=== PATIENT | male | born 1970 | race Caucasian/White ===

== ENCOUNTER 2024-03-21 10:39 | Inpatient (IN) | payer MEDICAID ==
[~2024-03-21] VITALS: Ht 177.8 cm; Wt 117.6 kg
[2024-03-21] VITALS (15 sets, daily range): BP systolic 113–145; BP diastolic 67–102; PULSE 59–76; RESP 10–16; TEMP 97.8–99.5; O2SAT 95–99
[2024-03-21] MEDS ORDERED: nitroGLYCERIN 0.4mg SUBLingual tab SL PRN ×2 (11:15→14:40)
[2024-03-21] MEDS ORDERED: GABA600T13 PO (11:36)
[2024-03-21] MEDS ORDERED: AMLO5TAB16 PO (11:36)
[2024-03-21] MEDS ORDERED: CLOT30CR19 TOP (11:36)
[2024-03-21] MEDS ORDERED: LIDO1ADH58 TOP (11:36)
[2024-03-21] MEDS ORDERED: ATOR40TA72 PO (11:36)
[2024-03-21] MEDS ORDERED: CHOL20002 PO (11:36)
[2024-03-21] MEDS ORDERED: ACET-2778 PO (11:36)
[2024-03-21] MEDS ORDERED: VENL150C58 PO (11:36)
[2024-03-21] MEDS ORDERED: ONDA-103 PO (11:36)
[2024-03-21] MEDS ORDERED: SEMA2.4P SUBCUT (11:36)
[2024-03-21] MEDS ORDERED: BUPR1PAT3 TOP (11:36)
[2024-03-21] MEDS ORDERED: DIPH50CA37 PO (11:36)
[2024-03-21] MEDS ORDERED: VALS1TAB81 PO (11:36)
[2024-03-21 11:44] LABS: BASOPHILS % (AUTO) 0.4 % (0-1); EOSINOPHILS # (AUTO) 0.1 X10'3 (0-0.9); HEMATOCRIT 47.6 % (42.0-52.0); HEMOGLOBIN 15.9 g/dl (14.0-17.9); LYMPHOCYTES # (AUTO) 2.1 X10'3 (1.1-4.8); LYMPHOCYTES % (AUTO) 22.7 % (21-51); MEAN CORPUSCULAR HEMOGLOBIN 30.9 PG (27.0-31.0); MEAN CORPUSCULAR HGB CONC 33.5 g/dL (33.0-36.5); MEAN CORPUSCULAR VOLUME 92.1 FL (78-98); MEAN PLATELET VOLUME 7.1 FL (7.4-10.4); MONOCYTES # (AUTO) 0.6 X10'3 (0-0.9); NEUTROPHILS # (AUTO) 6.4 X10'3 (1.8-7.7); NEUTROPHILS % (AUTO) 69.9 % (42-75); PLATELET COUNT 330 X10'3 (140-440); RED BLOOD COUNT 5.16 X10'6 (4.70-6.10); RED CELL DISTRIBUTION WIDTH 14.9 % (11.5-14.5); WHITE BLOOD COUNT 9.2 X10'3 (4.5-11.0)
[2024-03-21] MEDS: normal saline 1,000 ML IV SCH (11:59)
[2024-03-21] MEDS: diphenhydrAMINE 25mg capsule PO PRN (11:59)
[2024-03-21] MEDS: LORazepam 0.5 MG tablet PO PRN (11:59)
[2024-03-21] MEDS ORDERED: iohexol 350MG/ML 100ml bottle IV ONE (12:33)
[2024-03-21] MEDS ORDERED: fentaNYL/PF 50MCG/1 ML 2ML syringe ONE (12:33)
[2024-03-21] MEDS ORDERED: midazolam 1 mg/ML 2ml injection ONE (12:33)
[2024-03-21] MEDS ORDERED: iohexol 350 MG/ML 50ML vial IV ONE (12:33)
[2024-03-21] MEDS ORDERED: LIDOcaine 1% 30ml preserv. free vial ONE (12:33)
[2024-03-21 12:38] LABS: ALBUMIN 3.7 G/DL (3.4-5.0); ANION GAP 10 (8-16); BLOOD UREA NITROGEN 11 MG/DL (7-18); BUN/CREATININE RATIO 15.5 (10.0-20.0); CALCIUM 9.2 MG/DL (8.5-10.1); CHLORIDE 101 MMOL/L (99-107); CREATININE 0.71 MG/DL (0.60-1.10); GLUCOSE 87 MG/DL (70-104); POTASSIUM 3.8 MMOL/L (3.5-5.1); SODIUM 141 MMOL/L (135-145); TOTAL CARBON DIOXIDE 29.7 MMOL/L (24-32); eCRCL 121 ML/MIN; eGFR > 90 ML/MIN
[2024-03-21 13:06] LABS: APTT 29 SECONDS (22-32); INR 1.1 INR; PROTHROMBIN TIME 11.2 SECONDS (9.0-12.0)
[2024-03-21] MEDS ORDERED: HYDROmorphone 1 mg/ml syringe ONE (13:17)
[2024-03-21] MEDS ORDERED: ondansetron 4mg rapidly disintigrating tab PO PRN (14:25)
[2024-03-21] MEDS ORDERED: OXAZEpam 15mg capsule PO PRN (14:40)
[2024-03-21] MEDS ORDERED: proCHLORperazine 10 MG/2 ml inj IV PRN (14:40)
[2024-03-21] MEDS ORDERED: HYDROcodone/acetaminophen 5mg/325mg tablet PO PRN (14:40)
[2024-03-21] MEDS ORDERED: HYDROcodone/acetaminophen 10/325mg tab PO PRN (14:40)
[2024-03-21] MEDS: HYDROmorphone 1 mg/ml syringe IV PRN (15:12)
[2024-03-21] MEDS ORDERED: gabapentin 300mg capsule PO SCH (18:00)
[2024-03-21] MEDS: clotrimazole topical cream 15gm tube TP SCH (20:00)
[2024-03-21] MEDS: ondansetron/PF 4mg/2ml inj IV PRN (20:12)
[2024-03-21] MEDS: diphenhydrAMINE 25mg capsule PO SCH (21:54)
[2024-03-21] MEDS: gabapentin 300mg capsule PO SCH (21:54)
[2024-03-22] MEDS: acetaminophen 325mg tablet PO PRN (00:08)
[2024-03-22 06:00] VITALS: BP 96/54; PULSE 57; RESP 16; TEMP 97.9; O2SAT 95
[2024-03-22 08:00] VITALS: RESP 13; O2SAT 95
[2024-03-22] MEDS: amLODIPine 5mg tablet PO SCH (08:00)
[2024-03-22] MEDS: LIDOCAINE 1.8% TP SCH (08:00)
[2024-03-22] MEDS: HYDROchlorothiazide 25mg tablet PO SCH (08:00)
[2024-03-22] MEDS: losartan 50mg tablet PO SCH (08:00)
[2024-03-22] MEDS: gabapentin 300mg capsule PO SCH (08:05)
[2024-03-22] MEDS: venlafaxine XR 75mg capsule (Q24H) PO SCH (08:06)
[2024-03-22] MEDS: atorvastatin 20mg tablet PO SCH (08:07)
[2024-03-22] MEDS: cholecalciferol (vitamin D3) 1,000 unit (25mcg) tablet PO SCH (08:07)
[2024-03-22 11:00] VITALS: BP 127/76; PULSE 72; RESP 18; TEMP 98.8; O2SAT 98
[2024-03-27] MEDS ORDERED: SEMAGLUTIDE SQ SCH (14:45)
== END 2024-03-22 13:55 | disposition home or self-care (01) | DRG 810 ==
LOC: SSTAY O 10:39 → OBSVTOIN 16:27 → PCU 3S 16:27
PROVIDERS: ADMIT Internal Medicine; ATTEND Internal Medicine Cardiovascular Disease
PROC: 4A023N7 Measurement of Cardiac Sampling and Pressure, Left Heart, Percutaneous Approach (ICD-10-PCS; principal; 2024-03-21)
PROC: B2111ZZ Fluoroscopy of Multiple Coronary Arteries using Low Osmolar Contrast (ICD-10-PCS; 2024-03-21)
PROC: B2151ZZ Fluoroscopy of Left Heart using Low Osmolar Contrast (ICD-10-PCS; 2024-03-21)
PROC: B41F1ZZ Fluoroscopy of Right Lower Extremity Arteries using Low Osmolar Contrast (ICD-10-PCS; 2024-03-21)
DX: I97.610 Postprocedural hemorrhage of a circulatory system organ or structure following a cardiac catheterization (principal); E66.9 Obesity, unspecified; Z68.37 Body mass index [BMI] 37.0-37.9, adult; E78.5 Hyperlipidemia, unspecified; F32.A Depression, unspecified; I10 Essential (primary) hypertension; G62.9 Polyneuropathy, unspecified; G47.33 Obstructive sleep apnea (adult) (pediatric); Y83.8 Other surgical procedures as the cause of abnormal reaction of the patient, or of later complication, without mention of misadventure at the time of the procedure; Y92.89 Other specified places as the place of occurrence of the external cause; Z99.3 Dependence on wheelchair
CPT/HCPCS: 36415; 71046; 80048; 82948; 85025; 85610; 85730; 87081; 93005; 93306; 93458; 93926; 99152; 99153; A6258; A6449; C1760; G0378; J1170; J1644; J2250; J2405; J3010; J3490; J7030; Q0163; Q9967